=== PATIENT | female | born 1960 | race Caucasian/White ===

== ENCOUNTER 2024-06-19 18:54 | Emergency (ER) | payer OTHER, SELFPAY ==
--- NOTE | ~2024-06-19 | CT_ITS ---
CLINICAL HISTORY: Lower abdo pain tenderness, ? diverticulitis CT abdomen and pelvis with contrast Comparison: None Findings: No consolidation or effusion. The gallbladder is surgically absent. The liver appears normal in size and contour. There is mildly decreased hepatic attenuation. The spleen, pancreas, and bilateral adrenal glands are within normal limits for appearance. No hydronephrosis or hydroureter. solid organs are within normal limits. No hydronephrosis or hydroureter. No bowel obstruction, pneumoperitoneum, or pneumatosis. There is colonic diverticulosis without CT evidence for acute diverticulitis. Mild bowel wall thickening present at the descending and proximal sigmoid portions of the colon with mild pericolonic fat stranding in these regions. No pericolonic abscess. Pelvic contents unremarkable. The bladder is minimally distended with fluid, limiting its evaluation. Normal appendix. No acute fracture visualized. IMPRESSION: 1. Mild bowel wall thickening identified of the descending and proximal sigmoid portions of the colon with mild pericolonic fat stranding, consistent with a nonspecific colitis. No pericolonic abscess. No bowel obstruction. 2. Mild fatty infiltration of the liver. 3. Colonic diverticulosis. No CT evidence for acute diverticulitis. This document has been electronically signed by: Kody Peter MD on 06/19/2024 23:38:21
[2024-06-19 19:12] VITALS: BP 167/73; PULSE 74; RESP 20; TEMP 36.7; O2SAT 96; BMI 35.7
--- NOTE | 2024-06-19 19:12 | ED_ITS ---
HPI - General Adult General Chief complaint: Abdominal Pain Stated complaint: Abdominal pain/ Rectal bleeding Time Seen by Provider: 06/19/24 22:19 History of Present Illness ED Provider: Remigio PEREIRA narrative: The patient is a 64-year-old woman with a history of previous episodes of diverticulitis. She says that this morning she developed abdominal pain that was quite severe. She was ultimately able to have a bowel movement with some temporary relief of her pain but her pain returned this evening and she came to the emergency room. She passed a small amount of stool this this evening as well associated with some small flecks of blood. No fever, sweats, chills. No nausea or vomiting. She feels this is somewhat similar to but not identical to previous episodes of diverticulitis. Related Data Previous Rx's ?Medication ?Instructions ?Recorded metronidazole 500 mg tablet 500 mg PO TID 10 days #30 tabs 06/20/24 Allergies Allergy/AdvReac Type Severity Reaction Status Date / Time No Known Allergies Allergy Verified 06/19/24 19:14 Review of Systems 2 Review of Systems: Yes all other systems are reviewed and are negative Physical Exam ED Vital Signs: Vital Signs - 24 hr 06/19/24 22:43 06/20/24 01:03 Temperature 97.9 F 97.9 F Pulse Rate 64 69 Respiratory Rate 16 15 Blood Pressure 90/58 L 142/64 H Pulse Oximetry 98 96 Oxygen Delivery Method Room Air Room Air BMI result Body Mass Index 35.7 Const Other: The patient had fallen asleep while waiting to be seen. She awoke easily to a normal mental status. She was pleasant and cooperative and did not seem in acute distress. Orientation/consciousness: patient oriented x3 HENMT Other: Face is symmetrical, mucous membranes moist Eyes General: appearance normal, both eyes and all related structures Neck Neck: Yes normal visual inspection and Yes full ROM Resp Effort & Inspection: normal respiratory effort Auscultation: clear to auscultation bilaterally Cardio Rate: regular rate Rhythm: regular rhythm Heart sounds: S1 normal heart sound present and S2 normal heart sound present GI Other: The patient has tenderness in the left lower abdomen. Also some tenderness in the right lower abdomen. General: Yes no CVA tenderness Back/Spine/Pelvis Back: no CVA tenderness Skin Other: Skin is dry and unremarkable General skin exam: no rashes or lesions noted Neuro General: patient oriented x3, gait normal, tone normal, moves all extremities, no focal motor deficits and CN's II-XI intact bilaterally Extrem Other: No peripheral edema Course Course Course Narrative: RME: 64-year-old female history of diverticulitis presents to ED for left lower quadrant abdominal pain and rectal bleeding. Patient denies any recent trauma. Patient well-appearing. Labs ordered. Medications Administered Discontinued Medications Generic Name Dose Route Start Last Admin Trade Name Freq PRN Reason Stop Dose Admin Sodium Chloride 1,000 mls @ 999 mls/hr 06/19/24 22:30 06/20/24 00:15 Ns IV 06/19/24 23:30 Infused .Q1H1M TARIK Infusion Iohexol 85 ml 06/19/24 22:49 06/19/24 22:50 Iohexol 350 Mg/Ml 100 Ml Infus..Btl IV 06/19/24 22:50 85 ml ONCE ONE Administration Ketorolac Tromethamine 10 mg 06/19/24 22:26 06/19/24 23:06 Ketorolac Tromethamine 15 Mg/Ml Vial IVPUSH 06/19/24 22:27 10 mg ONCE ONE Administration Metronidazole 500 mg 06/20/24 00:43 06/20/24 00:59 Metronidazole 500 Mg Tablet PO 06/20/24 00:44 500 mg ONCE ONE Administration Medical Decision Making Medical Decision Making MDM Narrative: The patient is a 64-year-old female who presents with abdominal pain that began this morning. She thinks that the symptoms are somewhat similar to episodes of diverticulitis. She has never required hospitalization for diverticulitis. Her CBC was unremarkable. I offered the patient empiric treatment with antibiotics. She said that she very much would like to have a CAT scan. A CAT scan was done that did not show diverticulitis but did show findings of colitis primarily in the region of the descending colon and the proximal sigmoid colon. Clinically the patient was given a dose of ketorolac with improvement in her pain. She did not look toxic. I explained that the CT shows findings of colitis. I further explained that colitis is a condition which can have multiple causes. The patient does not appear ill enough to require hospitalization nor does she feel she needs to be hospitalized. I will place her on a course of metronidazole 500 mg t.i.d.. She should contact her online education manager, Dr. Mora of [facility] in the morning for a follow up appointment. Otherwise she should follow up with your regular doctor. Lab Data 06/19/24 19:53 06/19/24 19:53 Labs: Lab Results 06/19/24 Range/Units 19:53 WBC 7.6 (4.8-10.8) X10*3/uL RBC 4.54 (4.20-5.50) X10*6/uL Hgb 13.5 (12.0-16.0) g/dl Hct 39.6 (37.0-47.0) % MCV 87.2 (80.0-98.0) fL MCH 29.7 (27.0-33.0) pg MCHC 34.1 (31.0-35.0) g/dl RDW 13.0 (11.0-16.0) % Plt Count 193 (160-400) X10*3/uL MPV 8.9 L (9.4-12.3) fL Immature Gran % (Auto) 1.1 H (0.0-0.4) % Neut % (Auto) 69.7 (45-73) % Lymph % (Auto) 18.1 L (20-40) % [place] % (Auto) 9.0 (2-11) % Eos % (Auto) 1.8 (0-4) % Baso % (Auto) 0.3 (0-2) % Lymph # (Auto) 1.4 (1.2-4.9) X10*3/uL [place] # (Auto) 0.7 (0.1-1.2) X10*3/uL Eos # (Auto) 0.1 (0.0-0.4) X10*3/uL Baso # (Auto) 0.0 (0.0-0.2) X10*3/uL Abs Immat Gran (auto) 0.08 H (0.00-0.03) X10*3/uL Absolute Neuts (auto) 5.3 (2.0-8.3) x10*3/uL Absolute Nucleated RBC 0.000 (0.0-0.012) X10*3/uL Nucleated RBC % (auto) 0.0 (0.0-0.2) /100WBC Sodium 142 (135-145) mmol/L Potassium 3.5 (3.3-5.1) mmol/L Chloride 106 (96-108) mmol/L Carbon Dioxide 29 (22-29) mmol/L Anion Gap 11 L (12-20) BUN 11 (9-16) mg/dL Creatinine 0.77 (0.5-1.4) mg/dL Estim Creat Clear Calc 77.2 Estimated GFR > 60 Random Glucose 95 (60-115) mg/dL Calcium 9.5 (8.4-10.2) mg/dL Total Bilirubin 0.8 (0.0-1.0) mg/dL AST 40 H (5-31) U/L ALT 52 H (0-31) U/L Alkaline Phosphatase 83 (39-117) U/L Total Protein 7.2 (6.5-8.0) g/dL Albumin 4.4 (3.5-5.0) g/dL Lipase 22 (8-78) U/L Urine Color Yellow Urine Appearance Clear Urine pH 6.5 (5.0-9.0) Ur Specific [place] <= 1.005 (1.005-1.025) Urine Protein Negative (Neg-Trace) mg/dL Urine Glucose (UA) Negative (Negative) mg/dL Urine Ketones Negative (Negative) mg/dL Urine Blood Negative (Negative) Urine Nitrite Negative (Negative) Ur Leukocyte Esterase Negative (Negative) Discharge Plan Discharge Clinical Impression: Colitis Patient Disposition: Home, Self-Care Instructions: Colitis (ED) Additional Instructions: Your CAT scan today shows that you have findings of colitis, inflammation of a portion of the colon. This is mostly in the colon on the left side of your abdomen, the descending colon. They do not see findings of diverticulitis. Colitis is a condition which can have many different causes. It can be infectious but it can also be noninfectious. You has been started on a course of the antibiotic metronidazole. Please take this 3 times a day. In addition please make sure that you stay well hydrated. Drink lot of fluids. You may use [id number] ibuprofen and acetaminophen as needed for discomfort. I would recommend contacting your gastroenterology office in the morning. Please call Dr. Mora' office in the morning to see if you can make a follow up appointment for this condition. If you are unable to get a prompt appointment with your online education manager please try to follow up soon with your primary care doctor. If you are significantly worse please return to the emergency room. Prescriptions: New metronidazole 500 mg tablet 500 mg PO TID 10 Days Qty: 30 0RF Referrals: Kai Koch MD [Physician] - (colitis) Lexa Kerr MD [Physician] - (colitis) Interventions: ED Discharge Assessment Last Done: 06/20/24 01:03 Discharge Date/Time: 06/20/24 01:04 Print Language: Georgian
[2024-06-19 20:00] LABS: MANUAL DIFF FLAG NO
[2024-06-19 20:01] LABS: Basophils Percent Auto 0.3 % (0-2); Eosinophils Absolute Auto 0.1 X10*3/uL (0.0-0.4); Eosinophils Percent Auto 1.8 % (0-4); Hematocrit 39.6 % (37.0-47.0); Hemoglobin 13.5 g/dl (12.0-16.0); Imm Gran Abs Auto 0.08 X10*3/uL (0.00-0.03); Imm Gran Pct Auto 1.1 % (0.0-0.4); Lymphocytes Absolute Auto 1.4 X10*3/uL (1.2-4.9); Lymphocytes Percent Auto 18.1 % (20-40); Mean Corpuscular HGB Conc 34.1 g/dl (31.0-35.0); Mean Corpuscular Hemoglobin 29.7 pg (27.0-33.0); Mean Corpuscular Volume 87.2 fL (80.0-98.0); Mean Platelet Volume 8.9 fL (9.4-12.3); Monocytes Absolute Auto 0.7 X10*3/uL (0.1-1.2); Neutrophils Absolute Auto 5.3 x10*3/uL (2.0-8.3); Neutrophils Percent Auto 69.7 % (45-73); Platelet Count 193 X10*3/uL (160-400); Red Blood Count 4.54 X10*6/uL (4.20-5.50); White Blood Count 7.6 X10*3/uL (4.8-10.8)
[2024-06-19 20:02] LABS: Appearance Urine Clear; Color Urine Yellow; Glucose Urine UA Negative (Negative); Leukocyte Esterase Urine Negative (Negative); Nitrite Urine Negative (Negative); PH 6.5 (5.0-9.0); Specific Gravity - Urine <= 1.005 (1.005-1.025); Urine Blood Negative (Negative); Urine Ketones Negative (Negative); Urine Protein Negative (Neg-Trace)
[2024-06-19 20:14] LABS: Alanine Aminotransferase 52 U/L (0-31); Albumin Level 4.4 g/dL (3.5-5.0); Alkaline Phosphatase 83 U/L (39-117); Anion Gap 11 (12-20); Aspartate Amino Transferase 40 U/L (5-31); Bilirubin Total 0.8 mg/dL (0.0-1.0); Blood Urea Nitrogen 11 mg/dL (9-16); Calcium 9.5 mg/dL (8.4-10.2); Carbon Dioxide 29 mmol/L (22-29); Chloride 106 mmol/L (96-108); Creatinine Clr Calc Pharmacy 77.2; Estimated Glomerular Filt Rate > 60; Glucose Random 95 mg/dL (60-115); Lipase 22 U/L (8-78); Potassium 3.5 mmol/L (3.3-5.1); Sodium 142 mmol/L (135-145); Total Protein 7.2 g/dL (6.5-8.0)
[2024-06-19 22:43] VITALS: BP 90/58; PULSE 64; RESP 16; TEMP 36.6; O2SAT 98
[2024-06-19] MEDS: iohexoL 350 MG/ML 100 ML INFUS..BTL 85 ML IV (22:50)
[2024-06-19] MEDS: 0.9 % Sodium Chloride 1,000 ML 999 ML IV (23:06)
[2024-06-19] MEDS: Ketorolac Tromethamine 15 MG/ML VIAL 10 MG IVPUSH (23:06)
[2024-06-20] MEDS: metroNIDAZOLE 500 MG TABLET PO (00:59)
[2024-06-20 01:03] VITALS: BP 142/64; PULSE 69; RESP 15; TEMP 36.6; O2SAT 96
== END 2024-06-20 01:04 | disposition home or self-care (01) ==
PROVIDERS: Physician Assistant; Emergency Provider Emergency Medicine
DX: K52.9 Noninfective gastroenteritis and colitis, unspecified (principal); R10.9 Unspecified abdominal pain
CPT/HCPCS: 36415; 74177; 80053; 81003; 83690; 85025; 96361; 96374; 99284; 99285; J1885; Q9967

== ENCOUNTER → 2024-06-19 22:26 | Outpatient (BNV) | payer OTHER, SELFPAY | PROVIDERS: Emergency Provider Emergency Medicine; Visit Provider Radiology Diagnostic Radiology | DX: K57.30 Diverticulosis of large intestine without perforation or abscess without bleeding (principal) | CPT/HCPCS: 74177 ==